=== PATIENT | male | born 1965 | race Caucasian/White ===

== ENCOUNTER 2018-02-11 12:53 | Emergency (ER) | payer SELFPAY ==
[2018-02-11 13:02] VITALS: BP 145/95
--- NOTE | 2018-02-11 13:59 | UC ---
Trace Cai Gabriel, scribed for Miranda Jack MD on 02/11/18 at 1356 . 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 The patient rates the pain 5/10 in severity. Symptoms aggravated by movement. Sx have improved with time. Patient denies CP, SOB, numbness, tingling, penis and testicle pain. no hematuria. Pt did not fall. He has not taken any pain medication but the pain has slightly resolved since the incident. Patients medication reviewed this visit. - History of Current Complaint Chief Complaint: UCAbdominalPain Stated Complaint: ABDOMINAL STRAIN Time Seen by Provider: 02/11/18 13:45 Hx Obtained From: Patient Onset/Duration: Lasting Hours - .5, Still Present Severity Initially: Severe Severity Currently: Moderate Pain Intensity: 5 Pain Scale Used: 0-10 Numeric Location: Diffuse, Discrete At: LLQ Radiates: No Associated Signs And Symptoms: Positive: Negative - CP, SOB, numbness, tingling , penis and testicle pain - Allergies/Home Medications Allergies/Adverse Reactions: Allergies Allergy/AdvReac Type Severity Reaction Status Date / Time No Known Allergies Allergy Verified 02/11/18 13:02 Home Medications: Home Medications NK [No Home Medications Reported] 02/11/18 [History Confirmed 02/11/18] PMH/Surg Hx/FS Hx/Imm Hx - Additional Past Medical History Additional PMH: legal blindness Endocrine History: Diabetes Other History Of: Negative For: Hepatitis B - Surgical History Surgical History: None - Family History Known Family History: Positive: Cardiac Disease - mother of [place], Diabetes - father - Social History Occupation: Employed Full-time Alcohol Use: None Substance Use Type: None Smoking Status (MU): Never Smoked Tobacco Review of Systems Cardiovascular: Negative - CP Gastrointestinal: Abdominal Pain All Other Systems Reviewed And Are Negative: Yes Physical Exam - Summary Physical Exam Summary: Vital Signs Reviewed: Yes A+Ox3, no distress Eyes: Conjunctiva Clear, AVRIL. EOM intact and full ENT: Hearing grossly normal TM x 2 clear, mmoist, uvula midline, no exudate, no erythema Neck: Positive: Supple Respiratory: Positive: No respiratory distress, No accessory muscle use + CTA throughout no w/r Cardiovascular: RRR nl s1, s2 no m/r CBT <2 sec abd soft + BS, nd no guarding, no distension Pt with TTP left mid abdomen to mid ax line along oblique muscle no pain lower abdomen Pain point tender, reproduce with direct palp, rotation of waste, and LUE movement Musculoskeletal Exam: LITTLE x 4 without difficulty Strength Intact, ROM Intact Neurological: Positive: Alert, + sensation throughout Psychological: Positive: Normal Response To Family Skin: Positive: no rash, no ecchymosis Triage Information Reviewed: Yes Vital Signs: Initial Vital Signs Temp 97.8 F 02/11/18 12:57 Pulse 102 02/11/18 12:57 Resp 16 02/11/18 12:57 BP 145/95 02/11/18 12:57 Pulse Ox 99 02/11/18 12:57 Abd Pain Male Course/Dx - Course Course Of Treatment: Blood pressure noted and patient informed to follow up with PCP. Pt with left oblique muscle discomfort with direct palp and movement after ligting and twisting injury at work. motrin. nicolas wrap applied - pt reports "feels better" recommend heat,s tretch. urine neg for hematuria. return precautions discussed - Differential Dx/Clinical Impression Provider Diagnoses: left oblique muscle strain Discharge - Sign-Out/Discharge Documenting (check all that apply): Discharge/Admit/Transfer - Discharge Plan Condition: Stable Disposition: HOME Patient Education Materials: Muscle Strain (ED) Forms: *Gen. Provider Communication, *Work Release Referrals: Hiren Stewart MD [Primary Care Provider] - Additional Instructions: - Okay to alternate ibuprofen (Advil, Motrin) and Tylenol product (Tylenol or [place]) every 3 hours for pain or fever. Take with food. Do NOT take for more than 4-5 days. - Wear nicolas wrap for comfort and support - apply ice (20 min) at a time, 2-3 times a day - wrap in a towel - contact the physician referral center to establish with a new primary doctor. If you have increased pain, changes to your bowels or bladder, lightheadedness , vomiting or any other concern it is recommended you go directly to the emergency department - Billing Disposition and Condition Condition: STABLE Disposition: Home The documentation as recorded by the Trace gardner Gabriel accurately reflects the service I personally performed and the decisions made by me, Miranda Jack MD.
[2018-02-11] MEDS ORDERED: Ibuprofen TAB* 600 MG PO ONE (14:07)
== END 2018-02-11 14:29 | disposition home or self-care (01) ==
LOC: UCEAST 12:53
DX: S39.011A Strain of muscle, fascia and tendon of abdomen, initial encounter (principal); E11.9 Type 2 diabetes mellitus without complications; X50.1XXA Overexertion from prolonged static or awkward postures, initial encounter; Y93.89 Activity, other specified; Y92.9 Unspecified place or not applicable
CPT/HCPCS: 81003; 99212; A9270-GY; G0463

== ENCOUNTER 2018-08-03 09:34 | Emergency (ER) | payer BC ==
--- NOTE | 2018-08-03 09:36 | UC ---
Skin Complaint HPI - HPI Summary HPI Summary: 52 yo male presents with concerns about lyme disease. He tells me that last year he was bitten by a tick and is unsure how long it was attached to him for. About 6 months ago he started noticing increased fatigue, headache, and neck/ right shoulder/right elbow stiffness. Also mentions that he has had some intermittent fevers that will last a day or two over the last 6 months. 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 Denies numbness, tingling, dizziness, weight loss, night sweats, SOB, chest pain, abdominal pain, n/v. - History of Current Complaint Time Seen by Provider: 08/03/18 09:35 Stated Complaint: TICK BITE Hx Obtained From: Patient Onset/Duration: Sudden Onset - Allergy/Home Medications Allergies/Adverse Reactions: Allergies Allergy/AdvReac Type Severity Reaction Status Date / Time No Known Allergies Allergy Verified 08/03/18 09:43 Review of Systems All Other Systems Reviewed And Are Negative: Yes Constitutional: Positive: Fatigue Skin: Positive: Negative Eyes: Positive: Negative ENT: Positive: Negative Respiratory: Positive: Negative Cardiovascular: Positive: Negative Neurovascular: Positive: Negative Musculoskeletal: Positive: Other: - Neck stiffness. Right shoulder stiffness. Right elbow stiffness. Neurological: Positive: Negative Psychological: Positive: Negative PMH/Surg Hx/FS Hx/Imm Hx - Additional Past Medical History Additional PMH: None Other History Of: Negative For: Hepatitis B - Surgical History Surgical History: None - Family History Known Family History: Positive: Cardiac Disease - mother of [place], Diabetes - father - Social History Occupation: Employed Full-time Lives: With Family Alcohol Use: None Substance Use Type: None Smoking Status (MU): Never Smoked Tobacco Physical Exam - Summary Physical Exam Summary: GENERAL: NAD. WDWN. No pain distress. SKIN: No rashes, sores, lesions, or open wounds. NECK: No LAD. CHEST: CTAB. No r/r/w. No accessory muscle use. Breathing comfortably and in no distress. CV: RRR. Without m/r/g. Pulses intact. Brisk cap refill. MSK: Cervical spine: FROM without pain. Negative spurlings. Mild TTP around upper trapezius. No vertebral tenderness. RIGHT SHOULDER: Weakly positive empty can. FROM without pain. 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 No edema or obvious bony deformities. RIGHT ELBOW: FROM without pain. NTTP. NEURO: Alert. Sensations intact hand and all fingers. PSYCH: Age appropriate behavior. Triage Information Reviewed: Yes Vital Signs: Vital Signs: Temp Pulse Resp BP Pulse Ox 98 F 110 18 173/116 98 08/03/18 09:40 08/03/18 09:40 08/03/18 09:40 08/03/18 09:40 08/03/18 09:40 Vital Signs Reviewed: Yes Course/Dx - Course Course Of Treatment: Discussed with pt that his symptoms could be related to an underlying neck/shoulder pathology. He sees a chiropractor for his neck and tells me that he had an XR and has follow up. He wishes to rule out lyme disease first and will follow up for further evaluation of his symptoms if lyme is negative. - Diagnoses Provider Diagnoses: Tick bite. Fatigue. Neck pain. Right shoulder pain Discharge - Sign-Out/Discharge Documenting (check all that apply): Patient Departure All imaging exams completed and their final reports reviewed: No Studies - Discharge Plan Condition: Stable Disposition: HOME Patient Education Materials: Lyme Disease (ED), Tick Bite (ED), Exercises for Shoulder Flexion and Extension (ED) [place] [facility] [place]] - As Soon As Possible Additional Instructions: If you develop a fever, shortness of breath, chest pain, new or worsening symptoms - please call your PCP or go to the ED. Your blood pressure was high at todays visit. Please see your primary provider within 4 weeks for recheck and re-evaluation. 1) You have been tested for lyme disease today - as discussed, if your results are negative, please follow up with your Primary Doctor for further evaluation of your symptoms - Billing Disposition and Condition Condition: STABLE Disposition: Home
[2018-08-03 09:43] VITALS: BP 173/116
[2018-08-03 12:32] LABS: ABS Basophils 0 10^3/ul (0-0.2); ABS Eosinophils 0.3 10^3/ul (0-0.6); ABS Lymphocytes 1.3 10^3/ul (1.0-4.8); ABS Monocytes 0.5 10^3/ul (0-0.8); ABS Neutrophils 4.9 10^3/ul (1.5-7.7); ABS Nucleated RBC 0 10^3/ul; Eosinophil % 3.9 % (0-6); Hematocrit 47 % (42-52); Hemoglobin 16.7 g/dl (14.0-18.0); Lymphocyte % 19.1 % (25-47); Mean Corpuscular HGB Conc 35 g/dl (31-36); Mean Corpuscular Hemoglobin 31 pg (27-31); Mean Corpuscular Volume 87 fL (80-94); Mean Platelet Volume 7.9 fL (7.4-10.4); Nucleated Red Blood Cells % 0; Platelet Count 227 10^3/ul (150-450); Red Blood Count 5.47 10^6/ul (4.00-5.40); Red Cell Distribution Width 13 % (10.5-15)
== END 2018-08-03 10:05 | disposition home or self-care (01) ==
LOC: UCEAST 09:34
DX: T63.481A Toxic effect of venom of other arthropod, accidental (unintentional), initial encounter (principal); Y92.9 Unspecified place or not applicable; R53.83 Other fatigue; M54.2 Cervicalgia; M25.511 Pain in right shoulder
CPT/HCPCS: 36415; 85025; 86618; 99211; G0463

== ENCOUNTER 2019-11-27 13:26 | Emergency (ER) | payer SELFPAY ==
--- NOTE | 2019-11-27 14:08 | UC ---
Back Pain HPI - HPI Summary HPI Summary: Right flank pain since Friday. Denies burning upon urination . nothing makes it worse, rest makes it better - History of Current Complaint Chief Complaint: UCBackPain Stated Complaint: BACK PAIN Time Seen by Provider: 11/27/19 13:58 Hx Obtained From: Patient - Allergies/Home Medications Allergies/Adverse Reactions: Allergies Allergy/AdvReac Type Severity Reaction Status Date / Time No Known Allergies Allergy Verified 11/27/19 14:53 Home Medications: Home Medications NK [No Home Medications Reported] 11/27/19 [History Confirmed 11/27/19] PMH/Surg Hx/FS Hx/Imm Hx Previously Healthy: Yes Endocrine History: Diabetes Other History Of: Negative For: Hepatitis B - Surgical History Surgical History: None - Family History Known Family History: Positive: Cardiac Disease - mother of [place], Diabetes - father - Social History Alcohol Use: None Substance Use Type: None Smoking Status (MU): Never Smoked Tobacco Review of Systems All Other Systems Reviewed And Are Negative: Yes Constitutional: Negative: Fever Respiratory: Negative: Shortness Of Breath, Cough Neurovascular: Negative: Decreased Sensation Musculoskeletal: Positive: Other: - RIGHT LOWER BACK PAIN Neurological/Mental Status: Negative: Headache, Paresthesia, Numbness Physical Exam Triage Information Reviewed: Yes Appearance: Well-Appearing - HAS MASK ON Vital Signs Reviewed: Yes Musculoskeletal: Positive: Other: - R LOWER TENDERNESS BUT MILD Neurological: Negative: Other: - NEG STRAIGH TLEG TEST BILAT Back Pain Course/Dx - Course Course Of Treatment: SCREENED POSITIVE FOR COVID EXPOSURE: Was asked if he had COVID exposure and he stated yes from close co worker at [facility] that was +. He denies symptoms. INOCENCIA was called from ID and agrees he needs testing even if asympatomatic but he declined and would rather self-quarantine for 14 days. lives alone. BACK PAIN: mild, msk, spasming. did this exam gowned up for droplet precaution. no radiculopathic symptoms. flexeril for spasm. he will go to ED if worsening. - Differential Dx/Diagnosis Differential Diagnosis/HQI/PQRI: Other Provider Diagnosis: Back pain, Exposure to viral disease Discharge ED - Sign-Out/Discharge Documenting (check all that apply): Patient Departure All imaging exams completed and their final reports reviewed: No Studies - Discharge Plan Condition: Good Disposition: HOME Patient Education Materials: Acute Low Back Pain (ED) Forms: COVID-19 Eval & Not Tested Referrals: No Primary Care Phys,NOPCP [Primary Care Provider] - Additional Instructions: SEE INSTRUCTIONS YOUR BLOOD PRESSURE IS HIGH, SEE YOUR PCP. WE DISCUSSED YOUR GLUCOSE IN YOUR URINE. There is a chance this is muscular for which I gave you a muscle relaxer. If pain continues you may have to go to Emergency Room to get CT to rule out a stone although I do think that is low on my list. SINCE you have had an exposure to COVID-19 at work AND you have decided not to be tested today, THE ASK is that you stay home for 14 days. The department of health will be in contact with you. - Billing Disposition and Condition Condition: GOOD Disposition: Home
[2019-11-27 14:47] VITALS: BP 152/98
== END 2019-11-27 15:30 | disposition home or self-care (01) ==
LOC: UCEAST 13:26
DX: M54.5 Low back pain (principal); Z20.828 Contact with and (suspected) exposure to other viral communicable diseases; E11.9 Type 2 diabetes mellitus without complications
CPT/HCPCS: 81003; 99212; G0463

== ENCOUNTER 2019-11-30 08:31 | Emergency (ER) | payer OTHER ==
--- NOTE | 2019-11-30 08:46 | UC ---
Respiratory Complaint HPI - HPI Summary HPI Summary: Patient is a 54-year-old male with a 3 to four-day history of cough fever and chills. He has a mild headache and fatigue. He denies any chest pain or shortness of breath. - History of Current Complaint Stated Complaint: COUGH FEVER Time Seen by Provider: 11/30/19 08:34 Hx Obtained From: Patient Onset/Duration: Gradual Onset Timing: Constant Severity Initially: Mild Severity Currently: Mild Pain Intensity: 3 Pain Scale Used: 0-10 Numeric Character: Cough: Nonproductive Aggravating Factors: Nothing Alleviating Factors: Nothing Associated Signs And Symptoms: Positive: Fever, Chills, Nasal Congestion - Allergies/Home Medications Allergies/Adverse Reactions: Allergies Allergy/AdvReac Type Severity Reaction Status Date / Time No Known Allergies Allergy Verified 11/30/19 08:40 Home Medications: Home Medications Cyclobenzaprine (NF) [Cyclobenzaprine 5 MG (NF)] 5 mg PO BID 5 Days #10 tab [Rx Confirmed 11/30/19] PMH/Surg Hx/FS Hx/Imm Hx Previously Healthy: Yes Other History Of: Negative For: Hepatitis B - Surgical History Surgical History: None - Family History Known Family History: Positive: Cardiac Disease - mother of [place], Diabetes - father - Social History Alcohol Use: Occasionally Substance Use Type: None Smoking Status (MU): Never Smoked Tobacco Review of Systems All Other Systems Reviewed And Are Negative: Yes Constitutional: Positive: Fever, Chills, Fatigue Eyes: Positive: Negative ENT: Positive: Nasal Discharge Respiratory: Positive: Cough Cardiovascular: Positive: Negative Gastrointestinal: Positive: Negative Genitourinary: Positive: Negative Motor: Positive: Negative Neurovascular: Positive: Negative Musculoskeletal: Positive: Negative Neurological/Mental Status: Positive: Negative Psychological: Positive: Negative Physical Exam Triage Information Reviewed: Yes Appearance: Well-Appearing, No Pain Distress, Well-Nourished Vital Signs Reviewed: Yes Eyes: Positive: Conjunctiva Clear ENT: Positive: Hearing grossly normal, Nasal congestion, TMs normal, Uvula midline. Negative: Nasal drainage, Tonsillar swelling, Tonsillar exudate, Trismus, Muffled voice, Hoarse voice Dental Exam: Normal Neck: Positive: Supple, Nontender, No Lymphadenopathy Respiratory: Positive: Lungs clear, Normal breath sounds, No respiratory distress, No accessory muscle use Cardiovascular: Positive: RRR, No Murmur Musculoskeletal: Positive: ROM Intact, No Edema Neurological: Positive: Alert Psychological Exam: Normal Skin Exam: Normal Diagnostics - Laboratory Lab Results: influenza (-) Respiratory Course/Dx - Differential Dx/Diagnosis Provider Diagnosis: Viral syndrome, Elevated BP without diagnosis of hypertension Discharge ED - Sign-Out/Discharge Documenting (check all that apply): Patient Departure All imaging exams completed and their final reports reviewed: No Studies - Discharge Plan Condition: Stable Disposition: HOME Patient Education Materials: Viral Syndrome (ED) Forms: COVID-19 Tested & Isolation Referrals: [facility] [place] [facility]ERR[facility] [Outside] - If Needed (suggest BP recheck in 2-4 mos) Additional Instructions: recheck in 4 days if not better - Billing Disposition and Condition Condition: STABLE Disposition: Home
[2019-11-30 09:19] VITALS: BP 140/97
[2019-11-30 09:24] LABS: Influenza A Molecular Negative (Negative); Influenza B Molecular Negative (Negative)
== END 2019-11-30 09:45 | disposition home or self-care (01) ==
LOC: UCEAST 08:31
DX: B34.9 Viral infection, unspecified (principal); R03.0 Elevated blood-pressure reading, without diagnosis of hypertension; Z20.828 Contact with and (suspected) exposure to other viral communicable diseases
CPT/HCPCS: 99211; G0463; U0002